=== PATIENT | male | born 2000 | race Hispanic/Latino ===

== ENCOUNTER 2020-07-12 07:32 | Emergency (ER) | payer SELFPAY ==
[2020-07-12] MEDS ORDERED: DEXAMETHASONE INJ 10 MG/ML VIAL PO ONE (07:47)
--- NOTE | 2020-07-12 07:49 | ED.PDOC ---
History of Present Illness - General Chief Complaint: ENT Problem Time Seen by Provider: 07/12/20 07:35 Source: patient, RN notes reviewed, Vital Signs reviewed Exam Limitations: no limitations - History of Present Illness Comments: 20 yo M works at [employer] comes in with 5 days of throat feels swollen/pain, difficulty swallowing, shortness of breath, body aches and cough. No known fever. no change in taste or smell. Timing/Duration: constant, week, getting worse Cough Quality/Degree: moderate, dry cough Possible Cause: unknown cause Improving Factors: nothing Worsening Factors: nothing Associated Symptoms: cough, muscle aches, nasal congestion, shortness of breath, sore throat Allergies/Adverse Reactions: Allergies NO KNOWN ALLERGY Allergy (Verified 07/12/20 07:49) Review of Systems - Review of Systems Constitutional: States: malaise. Denies: chills, fever EENTM: States: throat pain. Denies: blurred vision Respiratory: States: cough, short of breath Cardiology: Denies: chest pain, palpitations Gastrointestinal/Abdominal: Denies: abdominal pain, nausea, vomiting Musculoskeletal: States: muscle pain Skin: Denies: rash Neurological: Denies: numbness, paresthesia, seizure, weakness Endocrine: Denies: unexplained weight loss Hematologic/Lymphatic: Denies: easy bleeding, easy bruising Past Medical History (General) - Patient Medical History Hx Seizures: Yes Hx Stroke: No Hx Dementia: No Hx Asthma: No Hx of COPD: No Hx Cardiac Disorders: No Hx Congestive Heart Failure: No Hx Pacemaker: No Hx Hypertension: No Hx Thyroid Disease: No Hx Diabetes: No Hx Gastroesophageal Reflux: No Hx Renal Disease: No Hx Cancer: No Hx of HIV: No Hx Hepatitis B: No Hx Hepatitis C: No Hx MRSA: No Family Medical History - Family History Paternal Family History: No Known Physical Exam - Physical Exam General Appearance: Alert, Comfortable, No apparent distress, Well Developed, Well Groomed, Well Hydrated, Well Nourished Eye Exam: bilateral normal ENT Exam: normal ENT inspection, hearing grossly normal, TMs normal Neck: non-tender, full range of motion, supple, normal inspection Respiratory: chest non-tender, lungs clear, normal breath sounds, no respiratory distress, no accessory muscle use Cardiovascular/Chest: normal peripheral pulses, regular rate, rhythm, no edema, no gallop, no JVD, no murmur Gastrointestinal/Abdominal: normal bowel sounds, non tender, soft, no organomegaly, no pulsatile mass Extremity: normal range of motion, non-tender, normal inspection, no calf tenderness, normal capillary refill Neurologic: lan administrator II-XII nml as tested, no motor/sensory deficits, alert, normal mood/affect, oriented x 3 Skin Exam: normal color, warm/dry Progress - Progress Progress: patient given PO dexamethasone x1 for viral pharyngitis. 07/12/20 08:28 The data reviewed when caring for this patient included: nurse notes, prior records, etc. The history and assessments from nurses notes were reviewed and considered, and the patient's home medication list was also reviewed and considered. My assessment and the results of testing completed here in the ED were discussed with the patient/family. All questions were answered, and they express understanding of my assessment and the plan. They have been instructed to return if their symptoms worsen, and have been asked to follow up with their primary care physician to recheck today's presenting complaint. return precautions given. patient discharged home in stable condition. Iwona Elmore DO #[id number] 07/12/20 08:31 - EKG/XRAY/CT XRAY: chest - no acute cardiopulmonary pathology. Departure - Departure Clinical Impression: COVID-19 Time of Disposition: 08:24 Disposition: Discharge to Home or Self Care Departure Forms: ED Discharge - Pt. Copy, Patient Portal Self Enrollment Instructions: DI for Ear Pain-Adult, Coronavirus Disease 2019 (COVID-19) Overview, Preventing the Spread of an Infectious Disease Diet: resume usual diet Activity: increase activity as tolerated
--- NOTE | 2020-07-12 08:34 | RAD ---
PROCEDURE:XR CHEST 1 VIEW HISTORY:shortness of breath COMPARISON: None FINDINGS: The heart appears unremarkable. The lungs are clear there is no alveolar consolidation, effusion or pneumothorax. There are no acute bony or soft tissue abnormalities. IMPRESSION: No acute cardiopulmonary process. Electronically signed by: Dustin Tomlin MD 07/12/2020 8:32 AM [facility]
[2020-07-12 08:40] VITALS: BP 128/76; TEMP 99; O2SAT 98
== END 2020-07-12 08:30 | disposition home or self-care (01) ==
LOC: ER 07:32
DX: U07.1 COVID-19 (principal); R56.9 Unspecified convulsions
CPT/HCPCS: 71045; 87070; 87635; 87880; J1100